=== PATIENT | female | born 1940 | race African-American/Black ===

== ENCOUNTER 2016-10-30 20:48 | Inpatient (IN) ==
[2016-10-30] MEDS ORDERED: SODIUM CHLORIDE 0.9% 500 ML IV STA (21:14)
[2016-10-30] MEDS ORDERED: PANTOPRAZOLE 40 MG VIAL IV STA (21:14)
[2016-10-30] MEDS ORDERED: ONDANSETRON 4 MG/2 ML VIAL IV STA (21:14)
[2016-10-30] MEDS ORDERED: ALUM/MAG/SIMETH/LIDO VISC 1:1 30 ML BOTTLE PO STA (21:14)
--- NOTE | 2016-10-30 21:20 | Emergency Department Note ---
IYeyo Sierra, am scribing for, and in the presence of, Davide Velasco MD 21:19. Rod Smith Charles R, MD, personally performed the services described in this documentation, ascribed by Lula Orona in my presence, and it is both accurate and complete . Arrival - Arrival Chief Complaint: Abdominal / Flank Pain Stated Complaint: stomach pains,unable to stand for long periods ED Nursing Triage Note: C/O Generalized abd pain and not wanting to stand due to the pain. Onset approx one week ago. Last BM today, normal. Family member also reports that pt has had a runny nose and cough, but denies fever. Pt is awake, alert and at her baseline mental status per family at time of triage. Mode of Arrival: Wheelchair Limitations: No Limitations Source: Patient, Family Time Seen by Provider: 10/30/16 21:07 - History of Present Illness HPI Narrative: Pt is a 76 y/o female that came to the ED with c/o abdominal pain and cold the last few days. Pt denies any abdominal pain or tenderness during the exam. Family member with pt reports pt has complained of abdominal pain and has not been able to walk due to having a cold and not eating. Family states pt is drinking liquids though. Family reports pt has had associated sxs of a little vomiting, cough, and runny nose but denies fever. Family states pt has a PMHx of a stroke affecting her left side, DM, and HTN. Family reports pt has been acting different but her speech is not slurred more than normal, pt knows who she is, and pt is able to answer questions. Onset (ago): day(s) Consistency: constant Severity: mild Severity scale (1-10): 1 Quality: other Date of Last Menstrual Period: Hysterectomy Allergies/Adverse Reactions: Allergies Allergy/AdvReac Type Severity Reaction Status Date / Time No Known Allergies Allergy Verified 04/23/15 11:54 Home Medications: Home Medications Medication Instructions Recorded Confirmed Type Aspirin [Ecotrin] 81 mg PO DAILY 04/23/15 10/30/16 History amLODIPine [Norvasc] 10 mg PO DAILY 04/23/15 10/30/16 History metFORMIN [Glucophage] 500 mg PO DAILY 04/23/15 10/30/16 History Review of System - Review of System 12 point system: reviewed and no additional remarkable complaints except as stated - Review of System Constitutional: Present: other (decreased appetite). Absent: fever Head/Ears/Nose/Throat: Present: nasal drainage Respiratory: Present: cough Cardiovascular: Absent: chest pain Gastrointestinal: Present: vomiting. Absent: abdominal pain (no abdominal pain according to pt but family reports pt has been complaining of abdominal pain) Skin: Absent: rash Psychiatric: Absent: anxiety Medical,Surgical,& Family Hx - Medical History Cardio: History of: Hypertension Psychological: History of: Depression Neurology: History of: Cerebrovascular Accident (1997), Dementia Endocrine: History of: Diabetes Mellitus (NIDDM), Dyslipidemia Renal: History of: Renal Problems (incontinent) Musculoskeletal: History of: Musculoskeletal Problems (old right foot break unable to set as child) Hematology: History of: Anemia - Surgical History Thoracic Surgeries: Patient denies;: Organ Transplant Reproductive Surgeries: Surgical HX of;: Hysterectomy - Family History Family History: Reports;: Family Hypertension, Family Psychiatric Problems ( mother-MR) Denies;: Family Anesthesia Reaction, Family Cancer, Family Diabetes, Family Heart Disease, Family Stroke - Social History Smoking Status: Former smoker Frequency of Alcohol Use: None Type of Drug Use: None Exam Vital Signs: Vital Signs Temperature 98.6 F 10/30/16 20:55 Pulse Rate 70 10/30/16 20:55 Respiratory Rate 16 10/30/16 20:55 Blood Pressure 89/44 10/30/16 20:55 O2 Sat by Pulse Oximetry 91 L 10/30/16 20:55 - General General appearance: alert, in no apparent distress, other (pt has baseline slurred speech and drooling) - Head Head exam: Present: atraumatic, normocephalic - Eye Eye exam: Present: PERRL, EOMI - ENT ENT exam: Present: mucous membranes moist. Absent: mucous membranes dry - Neck Neck exam: Present: full ROM. Absent: tenderness - Chest Chest inspection: Present: symmetric chest wall rise. Absent: tenderness - Respiratory Respiratory exam: Present: normal lung sounds bilaterally. Absent: respiratory distress - Cardiovascular Cardiovascular exam: Present: regular rate, normal rhythm, murmur (3 out of 6 systolic murmur) - Abdominal Exam Abdominal exam: Present: soft, normal bowel sounds. Absent: tenderness - Extremities Exam Extremities exam: Present: full ROM, pedal edema (+1 edema to left leg). Absent : tenderness - Back Exam Back exam: Present: full ROM. Absent: tenderness - Neurological Exam Neurological exam: Present: alert, oriented X3, CN II-XII intact. Absent: motor sensory deficit - Psychiatric Psychiatric exam: Present: normal affect, normal mood - Skin Skin exam: Present: warm, dry Course Course Narrative: Patient refused to let us do a rectal exam. Patient does not have any complaints. Cannot explain the anemia elicits a cancerous mass in the right upper lung field - Consultations Consultation #1: Hospitalist will admit patient Time: 23:02 Results - Labs CBC & BMP: 10/30/16 21:30 10/30/16 21:30 Lab Results: I have reviewed the patients labs Labs: Laboratory Tests 10/30/16 21:30 Hgb 7.6 L Hct 26.0 L MCV 63.9 L MCH 19 L MCHC 29.2 L RDW 22.4 H Plt Count 482 H Neut % (Auto) 81.5 H Lymph % (Auto) 10.9 L Neut # (Auto) 9.8 H Lymph # (Auto) 1.3 L Laboratory Tests 10/30/16 21:30 Anion Gap 16.8 H BUN 32 H Creatinine 1.20 H BUN/Creatinine Ratio 26.00 H Glucose 213 H ALT 9 L Troponin I 0.652 H Albumin 2.1 L Globulin 5.2 H Albumin/Globulin Ratio 0.4 L - Diagnostic Findings Procedure: Abdominal x-ray: report reviewed by me (Pulmonary pathology, as described on the chest x-ray. Possible hepatomegaly. Constipation. ), Chest x- ray: report reviewed by me (Complete opacification of the right upper lobe. Possible masses in the right hilar region. CT the chest is recommended for further evaluation. ) Disposition Clinical Impression: Mass of upper lobe of right lung, Anemia, Elevated troponin, Dementia, Constipation, Generalized weakness Case discussed with: patient, patient's family Disposition: Still a Patient Condition: Stable Time of Disposition: 23:03
[2016-10-30] MEDS ORDERED: ALUM/MAG/SIMETH/LIDO VISC 1:1 30 ML BOTTLE PO ONE (21:22)
[2016-10-30] MEDS ORDERED: ONDANSETRON 4 MG/2 ML VIAL ONE ×2 (21:22→21:57)
[2016-10-30] MEDS ORDERED: PANTOPRAZOLE 40 MG VIAL IV ONE (21:22)
--- NOTE | 2016-10-30 21:32 | EKG Report ---
Stationary ECG Study [facility] ER Test Date: 10/30/2016 9:30:19 PM Pat Name: ANSHU DREW Department: Room: Gender: F Furniture Assembler: NOEMI : 1940 Requested by: Davide Hernandez Order Number: [id number] Reading MD: ARGELIA SANCHEZ Intervals [place] Rate: 65 P: 75 GA: 167 QRS: -54 QRSD: 108 T: 78 QT: 341 QTc: 352 Interpretive Statements SINUS RHYTHM WITH OCCASIONAL VENTRICULAR PREMATURE COMPLEXES PATTERN CONSISTENT WITH PULMONARY DISEASE LEFT ANTERIOR FASCICULAR BLOCK Electronically Signed On 10-31-16 12:24:21 CDT by ARGELIA SANCHEZ [email or web address]
[2016-10-30 21:47] LABS: Basophils % 0.1 % (0.0-0.8); Eosinophils % 0.3 % (0.00-10.9); Hemoglobin 7.6 GM/DL (12.0-16.0); Immature Granulocytes % 0.7 %; Immature Granulocytes Absolute 0.09 #; Lymphocytes # 1.3 10*3/uL (1.4-4.0); Lymphocytes % 10.9 % (21.3-54.2); Mean Corpuscular HGB Conc 29.2 GM/DL (32-36); Mean Corpuscular Hemoglobin 19 PG (27-34); Mean Corpuscular Volume 63.9 FL (87-102); Mean Platelet Volume 9.6 FL (9.6-12.0); Monocytes # 0.8 10*3/uL (0.11-0.8); Monocytes % 6.5 % (1.7-12.7); Neutrophils # 9.8 10*3/uL (1.4-7.4); Neutrophils % 81.5 % (38.7-73.9); Platelet Count 482 T/CUMM (130-400); Red Blood Count 4.07 MC/CUMM (3.8-5.5); Red Cell Distribution Width 22.4 % (9.3-17.3)
[2016-10-30] MEDS ORDERED: MORPHINE 2 MG/1 ML SYRINGE ONE (21:57)
--- NOTE | 2016-10-30 22:07 | XRay Report ---
Portable chest. Indication: Generalized abdominal pain. Comparison: April 23, 2014. The heart is normal in size. There is complete opacification of the right upper lobe, without definite volume loss. In the right hilar region, nodular areas are noted, in the 1 to 1.5 cm range. Interstitial markings are prominent but stable. Surgical clips over the right breast. The osseous structures are diffusely demineralized. Degenerative changes of the spinal column and shoulders. Impression: Complete opacification of the right upper lobe. Possible masses in the right hilar region. CT the chest is recommended for further evaluation. PROCEDURE INTERPRETED AT [facility] DEPARTMENT OF RADIOLOGY Final Report Signed by: Dr. Pamela Schwartz
--- NOTE | 2016-10-30 22:11 | XRay Report ---
Two-view abdomen. Indication: Generalized abdominal pain. Comparison: September 21, 2011. The heart is normal in size. There is opacification of the right upper lobe. Surgical clips in the right breast. No free air. Possible liver enlargement. Considerable fecal material throughout the length of the colon. Extensive vascular calcifications. Diffuse demineralization of the osseous structures. Degenerative changes of the spinal column and hips. Impression: Pulmonary pathology, as described on the chest x-ray. Possible hepatomegaly. Constipation. PROCEDURE INTERPRETED AT [facility] [place] DEPARTMENT OF RADIOLOGY Final Report Signed by: Dr. Pamela Schwartz
[2016-10-30 22:24] LABS: Alanine Aminotransferase 9 U/L (13-56); Albumin 2.1 G/DL (3.4-5.0); Alkaline Phosphatase 94 U/L (45-117); Amylase 69 U/L (25-115); Aspartate Amino Transferase 23 U/L (0-37); Bilirubin,Total < 0.39 MG/DL (0.2-1.0); Blood Urea Nitrogen 32 MG/DL (7-18); Calcium 10.1 MG/DL (8.5-10.1); Glucose 213 MG/DL (74-106); Magnesium 2.1 MG/DL (1.8-2.4); Osmolality,Calculated 300.7 MOS/KG (273-304); Potassium 3.8 MMOL/L (3.5-5.1); Sodium 145 MMOL/L (136-145); Total Protein 7.3 G/DL (6.4-8.3)
[2016-10-30 22:31] LABS: Troponin I Only 0.652 NG/ML (0.00-0.045)
--- NOTE | 2016-10-31 00:39 | Hospitalist History & Physical ---
Assessment and Plan (1) Dementia Status: Chronic Current Visit: Yes Qualifiers: Dementia type: unspecified type (2) Mass of upper lobe of right lung Status: Acute Current Visit: Yes (3) Anemia Status: Acute Current Visit: Yes (4) Elevated troponin Status: Acute Current Visit: Yes (5) Constipation Status: Acute Current Visit: Yes (6) Generalized weakness Status: Acute Assessment and plan: Our plan for this patient will be admission to a monitored bed. She has 3 major problems that we need to address #1 is the lung mass. Need to get a CT scan in the morning of a chest with contrast to further characterize this. We will also need to consult pulmonary for their evaluation. Next is anemia. Most likely this is blood loss through her colon. She will not let us do a Hemoccult therefore I will just draw serial H&H's and see were the trend goes. Also there is a mild increase in troponin and this possibility that the abdominal pain that she was experiencing earlier is actually chest pain or referred pain. Will repeat troponins in 8 hours. Discussed plan of care with patient's daughter. Current Visit: Yes History of Present Illness Chief complaint: Abdominal pain History of present illness: Ms. Odell is a 76 year old female past medical history significant for stroke hypertension diabetes and anemia who is in her normal state of health until last few days. Patient came to the ER complaining of abdominal pain.. When she was examined by the ER physician she claims that she was not having any pain.. According to the family member she has not been able to walk because she is not eating and she has been having cold symptoms. Patient was found to be anemic. She she refused to have a Hemoccult done while in our emergency room. Patient's been very contrary and she is mean by nature. She does not want to be here. I was consulted to admit her Home Medications Medication Instructions Recorded Confirmed Type Aspirin [Ecotrin] 81 mg PO DAILY 04/23/15 10/30/16 History amLODIPine [Norvasc] 10 mg PO DAILY 04/23/15 10/30/16 History metFORMIN [Glucophage] 500 mg PO DAILY 04/23/15 10/30/16 History Allergies Allergy/AdvReac Type Severity Reaction Status Date / Time No Known Allergies Allergy Verified 04/23/15 11:54 Medical,Surgical,& Family Hx - Medical History Cardio: History of: Hypertension Psychological: History of: Depression Neurology: History of: Cerebrovascular Accident (1997), Dementia Endocrine: History of: Diabetes Mellitus (NIDDM), Dyslipidemia Renal: History of: Renal Problems (incontinent) Musculoskeletal: History of: Musculoskeletal Problems (old right foot break unable to set as child) Hematology: History of: Anemia - Surgical History Thoracic Surgeries: Patient denies;: Organ Transplant Reproductive Surgeries: Surgical HX of;: Hysterectomy - Family History Family History: Reports;: Family Hypertension, Family Psychiatric Problems ( mother-MR) Denies;: Family Anesthesia Reaction, Family Cancer, Family Diabetes, Family Heart Disease, Family Stroke - Social History Smoking Status: Former smoker Frequency of Alcohol Use: None Type of Drug Use: None 12 point system: reviewed and no additional remarkable complaints except as stated Exam - Constitutional Vitals: Period Temp Pulse Resp BP Sys/Wilson Pulse Ox Last 24 Hr 98.6 F-98.6 F 66-70 16-16 89-89/44-44 91 - General General appearance: alert, in no apparent distress - Head Head exam: Present: atraumatic, normocephalic - Eye Eye exam: Present: PERRL, EOMI - ENT ENT exam: Present: mucous membranes moist. - Neck Neck exam: Present: full ROM. Absent: tenderness - Chest Chest inspection: Present: symmetric chest wall rise. Absent: tenderness - Respiratory Respiratory exam: Present: normal lung sounds bilaterally. Absent: respiratory distress - Cardiovascular Cardiovascular exam: Present: regular rate, normal rhythm, systolic ejection murmur - Abdominal Exam Abdominal exam: Present: soft, normal bowel sounds. - Extremities Exam Extremities exam: Present: full ROM, pedal edema (+1 edema to left leg). - Back Exam Back exam: Present: full ROM. - Neurological Exam Neurological exam: Present: alert, oriented X3, CN II-XII intact. - Psychiatric Psychiatric exam: Present: normal affect, normal mood - Skin Skin exam: Present: warm, dry Results - Labs CBC & BMP: 10/30/16 21:30 10/30/16 21:30
[2016-10-31] MEDS ORDERED: ONDANSETRON 4 MG/2 ML VIAL IV PRN (00:46)
[2016-10-31] MEDS ORDERED: DEXTROSE 50% 25 GM/50 ML VIAL IV PRN (00:55)
[2016-10-31] MEDS ORDERED: GLUCAGON 1 MG VIAL IM PRN (00:55)
[2016-10-31 07:25] LABS: Basophils % 0.1 % (0.0-0.8); Eosinophils # 0.1 10*3/uL (0.0-0.87); Eosinophils % 0.5 % (0.00-10.9); Hematocrit 20.7 VOL% (35.7-47.0); Immature Granulocytes % 0.7 %; Lymphocytes # 1.2 10*3/uL (1.4-4.0); Lymphocytes % 8.5 % (21.3-54.2); Mean Corpuscular Hemoglobin 19 PG (27-34); Mean Corpuscular Volume 62.5 FL (87-102); Mean Platelet Volume 9.9 FL (9.6-12.0); Monocytes # 0.7 10*3/uL (0.11-0.8); Monocytes % 4.9 % (1.7-12.7); Neutrophils # 11.9 10*3/uL (1.4-7.4); Neutrophils % 85.3 % (38.7-73.9); Platelet Count 446 T/CUMM (130-400); Red Blood Count 3.31 MC/CUMM (3.8-5.5); Red Cell Distribution Width 22.1 % (9.3-17.3)
[2016-10-31 07:29] LABS: Hemoglobin 6.2 GM/DL (12.0-16.0)
--- NOTE | 2016-10-31 07:46 | CT Report ---
CT chest w con Indication: Mass. CT CHEST WITH CONTRAST DLP: 155 mGy*cm Comparison: None Technique: Axial CT images of the chest were obtained after the IV administration of Omnipaque 350, 100 cc. Findings: Peripherally enhancing centrally low dense mass involving the majority of the right upper lobe is present with multiple satellite nodules both in the right upper lobe and right lower lobe. Right middle lobe contains a small 7 mm nodule that is suspicious for metastatic lesion. Left lung appears relatively clear. There is mediastinal invasion from the primary right upper lobe lesion, including at least one 18 mm lymph node in the pretracheal space. Heart is normal in size. Extensive calcified atheromatous disease is present. No aortic dissection or aneurysm is shown. No left hilar lymphadenopathy. No axillary lymphadenopathy. Pleural spaces are clear. Bone windows demonstrate bony destruction of the right second, third and fourth ribs associated with the primary tumor. No additional destructive bone lesions are shown. In the upper abdomen, a right adrenal gland mass is present measuring 17 x 16 mm, and a left adrenal gland mass is present measuring 22 x 15 mm. A few hypodensities are present on the kidneys, likely cysts, largest on the left measuring 10 mm diameter. Impression: 1. Right upper lobe mass with multiple satellite nodules elsewhere in the right upper lobe and right lower lobe. Invasion of the right upper mediastinum. Mediastinal lymphadenopathy. Invasion of the right lateral chest wall with bony destruction of the right second, third and fourth ribs. No contralateral pulmonary disease identified. 2. Bilateral adrenal masses, likely metastatic. 3. Calcified atheromatous disease. 4. Probable renal cysts. PROCEDURE INTERPRETED AT [facility] [place] DEPARTMENT OF RADIOLOGY Final Report Signed by: Richar Lawson M.D.
[2016-10-31 07:54] LABS: Hypochromasia 1+; Ovalocytes Slight; Platelet Estimate Adequate; Target Cells Few
[2016-10-31 07:56] LABS: Calcium 9.2 MG/DL (8.5-10.1); Osmolality,Calculated 297.6 MOS/KG (273-304); Potassium 3.4 MMOL/L (3.5-5.1)
[2016-10-31] MEDS: INSULIN REGULAR 100 UNIT/ML SUBCUT SCH ×4 (08:59→20:45)
[2016-10-31] MEDS: PANTOPRAZOLE 40 MG TABLET PO SCH (09:00)
--- NOTE | 2016-10-31 10:23 | Gastrointestinal Consult Note ---
<DebraJuliet Jameson - Last Filed: 10/31/16 10:17> Assessment and Plan (1) Anemia Status: Acute Assessment and plan: 10/31-reports of abdominal pain by family on admission, patient denies any history of pain. Has history of dementia with CVA in past. Found on admission to be anemic. Refused stool for occult blood sample. To be transfused 2 units of packed red blood cells today. No known history of prior endoscopy. Continue to monitor H&H. Plan an addendum to follow by Dr. Beltran. Current Visit: Yes History of Present Illness Chief complaint: Abdominal pain History of present illness: Ms. Odell is a 76 year old female who presented to the ER with complaints of abdominal pain and cold symptoms. Patient is a poor historian and contributes very minimally to the patient interview. Information is obtained from chart review. No family is present during visit. Patient has a prior history of CVA as well as dementia. Patient is reported to have been brought to the ER by family due to patient complaining of abdominal pain and inability to walk as well as cold symptoms including nausea, vomiting, cough and runny nose. Patient is not reported to have been febrile at home. Patient has a history of a CVA with left hemiparesis, diabetes, and hypertension. Patient will awaken and answer questions but with simple yes or no replies and falls back asleep during visit. Patient denies any abdominal pain during visit. States she has not had abdominal pain. On admission she was found to be anemic and refused to have a Hemoccult done. Family reports that she can be difficult when it comes to cooperation at times. She has noted on admission to have a hemoglobin of 7.6 which is down at 6.2 today in the absence of any overt bleeding. She is to receive 2 units of blood this morning. BUN/creatinine ratio is elevated at 32. On admission abdominal x-ray showed hepatomegaly and constipation without any other acute process is seen she also had a chest CT done which showed a right upper lung mass with satellite nodules and invasion of the mediastinum. No findings of prior endoscopy at our facility noted. Patient noted on med list to take Ecotrin daily. Home Medications Medication Instructions Recorded Confirmed Type Aspirin [Ecotrin] 81 mg PO DAILY 04/23/15 10/30/16 History amLODIPine [Norvasc] 10 mg PO DAILY 04/23/15 10/30/16 History metFORMIN [Glucophage] 500 mg PO DAILY 04/23/15 10/30/16 History Allergies Allergy/AdvReac Type Severity Reaction Status Date / Time No Known Allergies Allergy Verified 04/23/15 11:54 Medical,Surgical,& Family Hx - Medical History Cardio: History of: Hypertension Psychological: History of: Depression Neurology: History of: Cerebrovascular Accident (1997), Dementia Endocrine: History of: Diabetes Mellitus (NIDDM), Dyslipidemia Renal: History of: Renal Problems (incontinent) Musculoskeletal: History of: Musculoskeletal Problems (old right foot break unable to set as child) Hematology: History of: Anemia - Surgical History Thoracic Surgeries: Patient denies;: Organ Transplant Reproductive Surgeries: Surgical HX of;: Hysterectomy - Family History Family History: Reports;: Family Hypertension, Family Psychiatric Problems ( mother-MR) Denies;: Family Anesthesia Reaction, Family Cancer, Family Diabetes, Family Heart Disease, Family Stroke - Social History Smoking Status: Former smoker Frequency of Alcohol Use: None Type of Drug Use: None ROS unobtainable: due to mental status Exam - Constitutional Vitals: Period Temp Pulse Resp BP Sys/Wilson Pulse Ox Last 24 Hr 97.1 F 61-65 16-16 106-117/54-55 96-97 General appearance: normal weight, no acute distress - Head Head exam: Present: normal inspection, normocephalic - Eye Eye exam: Present: other (Lids and conjunctivae unremarkable). Absent: scleral icterus - ENT ENT exam: Present: normal exam, normal oropharynx - Neck Neck exam: Present: normal inspection - Respiratory Respiratory exam: Present: clear to auscultation bilaterally. Absent: rales, rhonchi, wheezes - Cardiovascular Cardiovascular exam: Present: regular rate and rhythm. Absent: diastolic murmur , JVD, systolic murmur - GI/Abdominal GI/Abdominal exam: Present: normal bowel sounds, soft. Absent: ascites, distended, mass, organomegaly, tenderness - Extremities Exam Extremities exam: Present: normal inspection, full ROM - Back Exam Back exam: Present: normal inspection - Neurological Exam Neurological exam: Present: alert, altered - Psychiatric Psychiatric exam: Present: flat affect - Skin Skin exam: Present: normal color, warm, dry Results - Labs CBC & BMP: 10/31/16 07:06 10/31/16 07:06 Lab Results: I have reviewed the past 24 hour labs - Diagnostic Findings Procedure: Abdominal x-ray: report reviewed by me, CT - chest: report reviewed by me Quality Measures - VTE Contraindication to Pharmacological VTE Prophylaxis: Active Bleeding <Pj Beltran - Last Filed: 10/31/16 18:04> History of Present Illness History of present illness: Ms. Odell is a 76 year old female Exam - Constitutional Vitals: Period Temp Pulse Resp BP Sys/Wilson Pulse Ox Last 24 Hr 97.1 F-98.5 F 61-83 16-18 99-145/47-75 95-100 Results - Labs CBC & BMP: 10/31/16 11:25 10/31/16 07:06
[2016-10-31] MEDS ORDERED: BISACODYL 5 MG TABLET PO ONE (12:00)
[2016-10-31] MEDS: FUROSEMIDE 20 MG/2 ML VIAL IV SCH ×2 (15:12→20:45)
[2016-10-31] MEDS ORDERED: POTASSIUM CHLORIDE RIDER 10 MEQ in PREMIX 1 EACH IV PRN (15:28)
--- NOTE | 2016-10-31 16:40 | Oncology Consult Note ---
Assessment and Plan (1) Mass of upper lobe of right lung Status: Acute Current Visit: Yes (2) Dementia Status: Chronic Current Visit: Yes Qualifiers: Dementia type: unspecified type (3) Anemia Status: Acute Current Visit: Yes History of Present Illness History of present illness: Ms. Odell is a 76 year old female with advanced dementia who was admitted with weakness and was found to have a large right upper lobe mass with bony invasion and lymph node involvement in the mediastinum. She also is severely anemic. It is very difficult to obtain a history from her due to her dementia. There is no family present on my exam. She has not yet had a biopsy of this right upper lobe mass but this is most certainly a malignant process. She appears to have a very low functional status and it sounds like she lives at home with her daughter. GI is evaluating her severe anemia. I am unsure if we have any type of Hemoccult testing done yet since she has refused testing thus far. I would assume that she is iron deficient given her severe microcytic anemia. Her case appears futile given the advanced nature of this tumor and her poor mental and functional status. These issues need to be addressed with her daughter to see if they would like to pursue any further evaluation. At this point it appears that her best option is supportive care only with hospice. She would not be a candidate for any type of therapy including palliative radiation or chemotherapy. I will hold off on ordering a bone scan for now as this is of no benefit if the family is going to agree to not do any type of treatment. I tried to call both daughters listed on her contact page today with no success. I have notified the nurses to try to obtain a phone number from whatever family shows up to visit Ms. Odell. Home Medications Medication Instructions Recorded Confirmed Type Aspirin [Ecotrin] 81 mg PO DAILY 04/23/15 10/30/16 History amLODIPine [Norvasc] 10 mg PO DAILY 04/23/15 10/30/16 History metFORMIN [Glucophage] 500 mg PO DAILY 04/23/15 10/30/16 History Allergies Allergy/AdvReac Type Severity Reaction Status Date / Time No Known Allergies Allergy Verified 04/23/15 11:54 Medical,Surgical,& Family Hx - Medical History Cardio: History of: Hypertension Psychological: History of: Depression Neurology: History of: Cerebrovascular Accident (1997), Dementia Endocrine: History of: Diabetes Mellitus (NIDDM), Dyslipidemia Renal: History of: Renal Problems (incontinent) Musculoskeletal: History of: Musculoskeletal Problems (old right foot break unable to set as child) Hematology: History of: Anemia - Surgical History Thoracic Surgeries: Patient denies;: Organ Transplant Reproductive Surgeries: Surgical HX of;: Hysterectomy - Family History Family History: Reports;: Family Hypertension, Family Psychiatric Problems ( mother-MR) Denies;: Family Anesthesia Reaction, Family Cancer, Family Diabetes, Family Heart Disease, Family Stroke - Social History Smoking Status: Former smoker Frequency of Alcohol Use: None Type of Drug Use: None ROS unobtainable: due to mental status Exam - Constitutional Vitals: Period Temp Pulse Resp BP Sys/Wilson Pulse Ox Last 24 Hr 97.1 F-98.5 F 61-83 16-18 99-145/47-75 95-100 General appearance: no acute distress, cachectic - Head Head Exam: Present: normocephalic, atraumatic - Eye Eye Exam: Present: EOMI Pupils: Present: PERRL - ENT ENT exam: Present: normal exam, normal oropharynx - Neck Neck exam: Absent: lymphadenopathy, thyromegaly - Respiratory Respiratory exam: Present: CTAB. Absent: wheezes - Cardiovascular Cardiovascular exam: Present: RRR. Absent: JVD - GI/Abdominal GI/Abdominal exam: Present: soft. Absent: ascites, distended, mass - Neurological Exam Neurological exam: Present: altered - Psychiatric Psychiatric exam: Present: agitated - Skin Skin exam: Present: warm, dry Results - Labs CBC & BMP: 10/31/16 11:25 10/31/16 07:06 Lab Results: I have reviewed the past 24 hour labs - Diagnostic Findings Procedure: CT - chest: image reviewed by me, report reviewed by me Quality Measures - VTE Contraindication to Pharmacological VTE Prophylaxis: Active Bleeding
--- NOTE | 2016-10-31 16:43 | Hospitalist Progress Note ---
Assessment and Plan (1) Acute blood loss anemia Status: Acute Assessment and plan: Colonoscopy in a.m. 2 units packed red blood cells. Monitor hemoglobin. Continue Protonix. Nursing got nervous after patient got blood she was concerned about volume overload so 1 dose of Lasix was given after each unit packed red blood cells. Current Visit: Yes (2) Acute renal failure Status: Acute Assessment and plan: Acute renal failure resolved with hydration. Current Visit: Yes (3) Generalized weakness Status: Acute Assessment and plan: Probably due to blood loss and cancer. Patient has advanced dementia Current Visit: Yes (4) Mass of upper lobe of right lung Status: Acute Assessment and plan: Biopsy tomorrow. Dr. Banegas has seen her and will hopefully recommend hospice. Current Visit: Yes (5) Dementia Status: Chronic Assessment and plan: Currently not on any dementia drug Current Visit: Yes Qualifiers: Dementia type: unspecified type (6) Diabetes Status: Acute Assessment and plan: Hold metformin continue insulin sliding scale Current Visit: Yes (7) Hypercalcemia Status: Acute Assessment and plan: Improved with hydration Current Visit: Yes Hospitalist: Subjective Interval history: Patient has a long history of smoking. She is demented and does live with her daughter. Daughter and I had a conversation that she most likely has lung cancer with metastases. I asked her to contact her siblings and discuss you know how they wanted to proceed with that. We were going to attempt to get a biopsy today but IRR is too busy they will attempted tomorrow. She also has a bleed somewhere her hemoglobin was 6 and we given her 2 units packed cells and GI is going to do C scope tomorrow. Patient developed more crackles after receiving the blood work and give Lasix between each unit. Total time spent [address] Banegas this morning Exam - Constitutional Vitals: Period Temp Pulse Resp BP Sys/Wilson Pulse Ox Last 24 Hr 97.1 F-98.5 F 61-83 16-18 99-145/47-75 95-100 Exam: Heart Rate-[RRR] Lungs-[rhonchi on right] GI-[+bs soft, NT] Ext-[no edema] Neuro [Motor 5/5], [alert and oriented times 1, advanced dementia] psych [normal mood and affect] General [no acute distress] Results - Labs CBC & BMP: 10/31/16 11:25 10/31/16 07:06 Lab Results: I have reviewed the past 24 hour labs - Diagnostic Findings Procedure: CT - chest: report reviewed by me (Right upper lobe mass with metastases to the adrenal glands bones mediastinum and lymph nodes, RLL lobe mass ) Quality Measures - VTE Contraindication to Pharmacological VTE Prophylaxis: Active Bleeding
[2016-10-31] MEDS ORDERED: POTASSIUM CHLORIDE 20 MEQ TABLET PO ONE (16:45)
[2016-10-31] MEDS ORDERED: POLYETHYLENE GLYCOL POWDER 255 GM BOTTLE PO ONE (18:00)
[2016-10-31 19:43] LABS: Apearance,Urine Slightly Hazy (Clear); Bacteria,Urine Occasional /HPF (Few); Bilirubin,Urine Negative (Negative); Blood, Urine Moderate mg/dL (Negative); Glucose,Urine (UA) Negative (Negative); Ketones,Urine Negative (Negative); Mucus,Urine Occasional /LPF (Occasional); Nitrite,Urine Negative (Negative); Protein,Urine Negative; RBC,Urine 44 /HPF (0-4); Urine Color Straw (Yellow); Urine Specific Gravity 1.009 (1.001-1.035); Urine Urobilinogen < 2.0 EU/DL (0.2-1.0); WBC,Urine 9 /HPF (0-6)
[2016-10-31] MEDS: DESITIN 4OZ/NYSTATIN 15 GRAM MIXTURE PASTE TOP SCH (20:46)
[2016-10-31] MEDS ORDERED: MAGNESIUM CITRATE 300 ML BOTTLE PO ONE (21:00)
[2016-10-31 21:59] LABS: Hematocrit 32.2 VOL% (35.7-47.0); Hemoglobin 10.1 GM/DL (12.0-16.0)
[2016-10-31 22:12] LABS: INR 1.1; PT Patient Result 11.2 SECS; Partial Thromboplastin Time 33.4 SECS (0-40)
[2016-11-01] MEDS: INSULIN REGULAR 100 UNIT/ML SUBCUT SCH ×4 (07:37→20:30)
[2016-11-01 07:46] LABS: Basophils % 0.1 % (0.0-0.8); Eosinophils # 0.1 10*3/uL (0.0-0.87); Eosinophils % 0.4 % (0.00-10.9); Hematocrit 32.2 VOL% (35.7-47.0); Hemoglobin 10.4 GM/DL (12.0-16.0); Immature Granulocytes % 0.6 %; Immature Granulocytes Absolute 0.08 #; Lymphocytes % 7.3 % (21.3-54.2); Mean Corpuscular HGB Conc 32.3 GM/DL (32-36); Mean Corpuscular Hemoglobin 22 PG (27-34); Mean Corpuscular Volume 67.6 FL (87-102); Mean Platelet Volume 9.6 FL (9.6-12.0); Monocytes # 0.8 10*3/uL (0.11-0.8); Monocytes % 5.7 % (1.7-12.7); Neutrophils % 85.9 % (38.7-73.9); Platelet Count 460 T/CUMM (130-400); Red Blood Count 4.76 MC/CUMM (3.8-5.5); Red Cell Distribution Width 25.5 % (9.3-17.3)
[2016-11-01] MEDS: PANTOPRAZOLE 40 MG TABLET PO SCH (08:04)
[2016-11-01] MEDS: DESITIN 4OZ/NYSTATIN 15 GRAM MIXTURE PASTE TOP SCH ×2 (08:05→20:38)
[2016-11-01] MEDS: FUROSEMIDE 20 MG/2 ML VIAL IV SCH (08:05)
[2016-11-01 08:10] LABS: Hypochromasia 1+; Platelet Estimate Adequate; Target Cells Few
[2016-11-01 08:22] LABS: Calcium 9.7 MG/DL (8.5-10.1); Osmolality,Calculated 282.5 MOS/KG (273-304); Potassium 2.9 MMOL/L (3.5-5.1)
--- NOTE | 2016-11-01 08:24 | Event Note ---
Talked with family/patient last night and discussed the biopsy. After our discussion and in light of the fact that there will be no plans for treatment - no matter what the biopsy shows - the family has requested to cancel the biopsy and will likely plan for hospice care.
[2016-11-01] MEDS: POTASSIUM CHLORIDE RIDER 10 MEQ in PREMIX 1 EACH IV PRN ×5 (08:56→20:33)
[2016-11-01] MEDS: POTASSIUM CHLORIDE 20 MEQ TABLET PO SCH ×3 (10:40→20:37)
--- NOTE | 2016-11-01 11:49 | Gastrointestinal Progress Note ---
<Juliet Richardson Jameson - Last Filed: 11/01/16 11:47> Assessment and Plan (1) Anemia Status: Acute Assessment and plan: 11/01-Hgb stable at 10.4 w/o overt bleeding. EGD postponed to tomorrow due to hypokalemia. Plan and addendum to follow by DR Beltran. 10/31-reports of abdominal pain by family on admission, patient denies any history of pain. Has history of dementia with CVA in past. Found on admission to be anemic. Refused stool for occult blood sample. To be transfused 2 units of packed red blood cells today. No known history of prior endoscopy. Continue to monitor H&H. Plan an addendum to follow by Dr. Beltran. Current Visit: Yes Gastroenterology - PN: Subj Interval history: CC: Abd pain Pt is seen, awake and alert. States she is having some abdominal pain this morning. SHe was scheduled for colonoscopy however pt refused the prep yesterday. This was changed to an EGD for today however pt had potassium at 2.9 with IV potassium repletion protocol however labwork was not returned soon enough to initiate this. Pt has received potassium riders however will recheck this in the morning and proceed with EGD if hypokalemia is improved. Abdomen is soft, nontender. ROS: Denies SOB or chest pain Exam (Progress Note) - Constitutional Vitals: Period Temp Pulse Resp BP Sys/Wilson Pulse Ox Last 24 Hr 97.3 F-98.5 F 63-91 18-20 99-146/47-75 94-100 General appearance: normal weight, no acute distress - Head Head exam: Present: normal inspection, normocephalic - Eye Eye exam: Present: other (lids and conjunctiva unremarkable). Absent: scleral icterus - ENT ENT exam: Present: normal exam, normal oropharynx - Neck Neck exam: Present: normal inspection - Respiratory Respiratory exam: Present: clear to auscultation bilaterally. Absent: rales, rhonchi, wheezes - Cardiovascular Cardiovascular exam: Present: regular rate and rhythm. Absent: diastolic murmur , JVD, systolic murmur - GI/Abdominal GI/Abdominal exam: Present: normal bowel sounds, tenderness, soft. Absent: ascites, distended, mass, organomegaly - Extremities Exam Extremities exam: Present: normal inspection, full ROM - Back Exam Back exam: Present: normal inspection - Neurological Exam Neurological exam: Present: alert, oriented X3 - Psychiatric Psychiatric exam: Present: normal affect, normal mood - Skin Skin exam: Present: normal color, warm, dry Results - Labs CBC & BMP: 11/01/16 07:39 11/01/16 07:39 Lab Results: I have reviewed the past 24 hour labs <Pj Beltran - Last Filed: 11/01/16 18:46> Exam (Progress Note) - Constitutional Vitals: Period Temp Pulse Resp BP Sys/Wilson Pulse Ox Last 24 Hr 97.3 F-98.7 F 66-91 18-20 104-146/56-75 94-100 Results - Labs CBC & BMP: 11/01/16 07:39 11/01/16 14:46
[2016-11-01 15:21] LABS: Magnesium 1.8 MG/DL (1.8-2.4); Potassium 4.1 MMOL/L (3.5-5.1)
[2016-11-01] MEDS ORDERED: cefTRIAXone 1,000 MG in SODIUM CHLORIDE 0.9% 100 ML IV SCH (16:00)
--- NOTE | 2016-11-01 16:11 | Hospitalist Progress Note ---
Assessment and Plan (1) Acute blood loss anemia Status: Acute Assessment and plan: Hemoglobin stable at 10.4 will attempt EGD tomorrow Current Visit: Yes (2) Acute renal failure Status: Acute Assessment and plan: Acute renal failure resolved with hydration. Current Visit: Yes (3) Generalized weakness Status: Acute Assessment and plan: Probably due to blood loss and cancer. Patient has advanced dementia Current Visit: Yes (4) Mass of upper lobe of right lung Status: Acute Assessment and plan: Biopsy cancelled. Dr. Banegas recommended hospice as she is not a candidate for chemo or radiation Current Visit: Yes (5) Dementia Status: Chronic Assessment and plan: already advanced medications would be futile Current Visit: Yes Qualifiers: Dementia type: unspecified type (6) Diabetes Status: Acute Assessment and plan: Hold metformin, BS low at times, continue insulin sliding scale Current Visit: Yes (7) Hypercalcemia Status: Acute Assessment and plan: Improved with hydration, may be elevated due to lung ca Current Visit: Yes (8) Hypokalemia Status: Acute Assessment and plan: Replacing with po potassium Current Visit: Yes (9) UTI (urinary tract infection) Status: Acute Assessment and plan: Patient does have a urinary tract infection. It is growing gram-negative rods. I started her on Rocephin. Last time she grew Klebsiella which was sensitive to Rocephin. Current Visit: No Hospitalist: Subjective Interval history: Patient has very advanced dementia and is very difficult at night. This morning she did not want to take any of her pills. Family has decided to cancel biopsy due to the extensive nature of her cancer. Patient's potassium was too low to get an EGD today. Exam - Constitutional Vitals: Period Temp Pulse Resp BP Sys/Wilson Pulse Ox Last 24 Hr 97.3 F-98.7 F 64-91 18-20 101-146/54-75 94-100 Exam: Heart Rate-[RRR] Lungs-[clear] GI-[+bs soft, NT] Ext-[no edema] Neuro [Motor 5/5], [alert and oriented times 1, advanced dementia] psych [agitated mood and affect], wanted to be left alone. General [no acute distress] Results - Labs CBC & BMP: 11/01/16 07:39 11/01/16 14:46 Lab Results: I have reviewed the past 24 hour labs Labs: urine Culture growing gram-negative rods Quality Measures - VTE Contraindication to Pharmacological VTE Prophylaxis: Active Bleeding
[2016-11-02 01:13] LABS: Basophils % 0.2 % (0.0-0.8); Eosinophils # 0.1 10*3/uL (0.0-0.87); Eosinophils % 0.6 % (0.00-10.9); Hematocrit 31.2 VOL% (35.7-47.0); Hemoglobin 9.6 GM/DL (12.0-16.0); Immature Granulocytes % 0.4 %; Immature Granulocytes Absolute 0.05 #; Lymphocytes # 1.1 10*3/uL (1.4-4.0); Mean Corpuscular HGB Conc 30.8 GM/DL (32-36); Mean Corpuscular Hemoglobin 22 PG (27-34); Mean Corpuscular Volume 69.8 FL (87-102); Mean Platelet Volume 9.8 FL (9.6-12.0); Monocytes % 7.9 % (1.7-12.7); Neutrophils # 10.2 10*3/uL (1.4-7.4); Neutrophils % 81.9 % (38.7-73.9); Platelet Count 424 T/CUMM (130-400); Red Blood Count 4.47 MC/CUMM (3.8-5.5); Red Cell Distribution Width 26.5 % (9.3-17.3); White Blood Count 12.4 T/CUMM (4-12)
[2016-11-02 01:40] LABS: Calcium 9.5 MG/DL (8.5-10.1); Potassium 4.2 MMOL/L (3.5-5.1)
[2016-11-02 04:38] LABS: Platelet Estimate Normal; Target Cells 1+
[2016-11-02] MEDS: INSULIN REGULAR 100 UNIT/ML SUBCUT SCH ×4 (07:37→20:39)
[2016-11-02] MEDS: DESITIN 4OZ/NYSTATIN 15 GRAM MIXTURE PASTE TOP SCH (08:00)
[2016-11-02] MEDS: PANTOPRAZOLE 40 MG TABLET PO SCH (08:00)
[2016-11-02] MEDS: POTASSIUM CHLORIDE 20 MEQ TABLET PO SCH ×2 (08:00→20:41)
[2016-11-02] MEDS ORDERED: LIDOCAINE 2% 5 ML VIAL ONE (10:30)
[2016-11-02] MEDS ORDERED: PROPOFOL 200 MG/20 ML VIAL IV ONE (10:30)
--- NOTE | 2016-11-02 11:36 | History and Physical Update ---
History and Physical Update - Physical Exam Mental Status: alert and oriented Heart: regular rate and rhythm Lung: clear to auscultation Abdomen: within normal limits Vitals: within normal limits
--- NOTE | 2016-11-02 11:38 | Operative Note ---
Date of procedure: 11/02/16 Pre-op diagnosis: Anemia and abdominal pain Procedure: EGD 76-year-old female with complaints of abdominal pain and anemia now for upper endoscopy after the patient has refused prep for colonoscopy. Hospital course has also been complicated by hypokalemia which is now been resolved. Informed consent was obtained patient's family. She was sedated with MAC anesthesia per anesthesia protocol. Placed in the left lateral decubitus position the Olympus flexible video upper endoscope was inserted into the oral cavity under direct vision the esophagus was intubated. Findings: Esophagus-normal proximal esophageal mucosa. In the mid to distal esophagus severe erosive esophagitis is present. There is a moderate hiatal hernia. No clear evidence of Bertrand's esophagus was identified nor were any varices seen. Stomach-normal insufflation normal mucosa to direct and retroflexed views of the body, fundus, cardia and antrum the stomach. Pylorus-normal Duodenum-normal for the bulb and duodenum to the third portion of the duodenum. The procedure terminated placed our procedure well she is discharged recovery in good condition. Postop diagnosis: 1. Gastroesophageal reflux disease with erosive esophagitis-continue PPI treatment twice daily would initiate this now with IV proton pump inhibitors. Antireflux precautions will be challenging for this patient but certainly should be attempted. 2. Patient has refused prep for colonoscopy we can reconsider if she is willing to drink her prep but so far she has not shown a willingness. Anesthesia: [facility] [place] Surgeon / Physician: Pj Beltran Estimated blood loss: none Specimens: none sent Condition: stable Disposition: post procedure unit Results - Labs CBC & BMP: 11/02/16 00:41 11/02/16 00:41 Discharge Plan - Discharge Medications No Action amLODIPine [Norvasc] 10 mg PO DAILY metFORMIN [Glucophage] 500 mg PO DAILY Aspirin [Ecotrin] 81 mg PO DAILY - Follow Up or Referral - Forms/Instructions
[2016-11-02] MEDS: PANTOPRAZOLE 40 MG VIAL IV SCH ×2 (11:44→20:41)
--- NOTE | 2016-11-02 13:16 | Anesthesia ---
Anesthesia Post OP - Post Ansesthetic Evaluation Patient seen in post op: Yes Resp: within normal limits CV: within normal limits Mental: within normal limits Temp: within normal limits [id number]: within normal limits Nausea and Vomiting: within normal limits Pain: within normal limits
--- NOTE | 2016-11-02 15:34 | Hospitalist Progress Note ---
Assessment and Plan (1) Acute blood loss anemia Status: Acute Assessment and plan: Hemoglobin still stable, EGD showed GERD with erosive esophagitis continue PPI twice a day patient too combative to attempt colonoscopy at this point. Current Visit: Yes (2) Acute renal failure Status: Acute Assessment and plan: Acute renal failure resolved. Current Visit: Yes (3) Generalized weakness Status: Acute Assessment and plan: Probably due to blood loss and cancer. Patient has advanced dementia Current Visit: Yes (4) Mass of upper lobe of right lung Status: Acute Assessment and plan: Biopsy cancelled. Dr. Banegas recommended hospice as she is not a candidate for chemo or radiation Current Visit: Yes (5) Dementia Status: Chronic Assessment and plan: already advanced medications would be futile, seroquel 50 mg bedtime Current Visit: Yes Qualifiers: Dementia type: unspecified type (6) Diabetes Status: Acute Assessment and plan: continue insulin sliding scale Current Visit: Yes (7) Hypercalcemia Status: Acute Assessment and plan: Improved with hydration, may be elevated due to lung ca Current Visit: Yes (8) Hypokalemia Status: Acute Assessment and plan: Replaced Current Visit: Yes (9) UTI (urinary tract infection) Status: Acute Assessment and plan: invanz 1 gram IV. Current Visit: No Hospitalist: Subjective Interval history: Nursing reports patient has been extremely agitated and difficult to handle due to her advanced dementia. She did not sleep well last night. She did go for EGD today and we most likely found the source of our bleed. We will send her home on hospice tomorrow. The sooner she gets back in her home environment the better. Exam - Constitutional Vitals: Period Temp Pulse Resp BP Sys/Wilson Pulse Ox Last 24 Hr 97.4 F-98.4 F 68-90 16-20 93-136/45-049 94-100 Exam: Heart Rate-[RRR] Lungs-[diminished on right] GI-[+bs soft, NT] Ext-[no edema] Neuro [Motor 5/5], [agitated advanced dementia] psych [agitated mood and affect], General [no acute distress] Results - Labs CBC & BMP: 11/02/16 00:41 11/02/16 00:41 Lab Results: I have reviewed the past 24 hour labs Labs: Urine culture growing ESBL resistant to Rocephin Quality Measures - VTE Contraindication to Pharmacological VTE Prophylaxis: Active Bleeding
[2016-11-02] MEDS ORDERED: ERTAPENEM 1,000 MG in SODIUM CHLORIDE 0.9% 100 ML IV SCH (16:00)
[2016-11-02] MEDS ORDERED: QUEtiapine 25 MG TABLET PO SCH (21:00)
[2016-11-03] MEDS: DESITIN 4OZ/NYSTATIN 15 GRAM MIXTURE PASTE TOP SCH ×2 (01:10→08:39)
[2016-11-03] MEDS: POTASSIUM CHLORIDE 20 MEQ TABLET PO SCH ×2 (01:11→08:39)
[2016-11-03 07:57] LABS: Basophils % 0.3 % (0.0-0.8); Eosinophils # 0.1 10*3/uL (0.0-0.87); Eosinophils % 0.6 % (0.00-10.9); Hematocrit 32.9 VOL% (35.7-47.0); Immature Granulocytes % 0.9 %; Immature Granulocytes Absolute 0.12 #; Lymphocytes # 1.4 10*3/uL (1.4-4.0); Lymphocytes % 10.9 % (21.3-54.2); Mean Corpuscular HGB Conc 30.4 GM/DL (32-36); Mean Corpuscular Hemoglobin 22 PG (27-34); Mean Corpuscular Volume 71.8 FL (87-102); Mean Platelet Volume 9.9 FL (9.6-12.0); Monocytes # 1.2 10*3/uL (0.11-0.8); Monocytes % 8.9 % (1.7-12.7); Neutrophils # 10.2 10*3/uL (1.4-7.4); Neutrophils % 78.4 % (38.7-73.9); Platelet Count 441 T/CUMM (130-400); Red Blood Count 4.58 MC/CUMM (3.8-5.5)
[2016-11-03] MEDS: INSULIN REGULAR 100 UNIT/ML SUBCUT SCH ×2 (08:33→12:06)
--- NOTE | 2016-11-03 08:51 | Gastrointestinal Progress Note ---
<DebraJuliet Jameson - Last Filed: 11/03/16 08:49> Assessment and Plan (1) Anemia Status: Acute Assessment and plan: 11/02-Hgb 10. EGD findings noted. Pt continues to refuse colon prep. Plan and addendum to follow by Dr Beltran 11/01-Hgb stable at 10.4 w/o overt bleeding. EGD postponed to tomorrow due to hypokalemia. Plan and addendum to follow by DR Beltran. 10/31-reports of abdominal pain by family on admission, patient denies any history of pain. Has history of dementia with CVA in past. Found on admission to be anemic. Refused stool for occult blood sample. To be transfused 2 units of packed red blood cells today. No known history of prior endoscopy. Continue to monitor H&H. Plan an addendum to follow by Dr. Beltran. Gastroenterology - PN: Subj Interval history: CC: Abdominal pain, anemia Pt is seen, awake and alert. States she is feeling better today, denies any abdominal pain. She is tolerating her diet well. EGD findings noted on yesterday. Pt continues to refuse colon prep at this time. Abdomen is soft, nontender. Hemoglobin 10. ROS: Denies SOB or chest pain Exam (Progress Note) - Constitutional Vitals: Period Temp Pulse Resp BP Sys/Wilson Pulse Ox Last 24 Hr 98.1 F-98.9 F 68-84 16-18 93-136/45-049 90-99 General appearance: normal weight, no acute distress - Head Head exam: Present: normal inspection, normocephalic - Eye Eye exam: Present: other (lids and conjunctiva unremarakble). Absent: scleral icterus - ENT ENT exam: Present: normal exam, normal oropharynx - Neck Neck exam: Present: normal inspection - Respiratory Respiratory exam: Present: clear to auscultation bilaterally. Absent: rales, rhonchi, wheezes - Cardiovascular Cardiovascular exam: Present: regular rate and rhythm. Absent: diastolic murmur , JVD, systolic murmur - GI/Abdominal GI/Abdominal exam: Present: normal bowel sounds, soft. Absent: ascites, distended, mass, organomegaly, tenderness - Extremities Exam Extremities exam: Present: normal inspection, full ROM - Back Exam Back exam: Present: normal inspection - Neurological Exam Neurological exam: Present: alert, altered - Psychiatric Psychiatric exam: Present: normal affect, normal mood, agitated - Skin Skin exam: Present: normal color, warm, dry Results - Labs CBC & BMP: 11/03/16 07:39 11/02/16 00:41 Lab Results: I have reviewed the past 24 hour labs Specialty Discharge - Follow Up or Referrals Follow up with: Lewis Paul Dr. [Other] - 2 Weeks Chris Mittal MD [Physician] - 2 Weeks <Pj Beltran - Last Filed: 11/03/16 16:54> Exam (Progress Note) - Constitutional Vitals: Period Temp Pulse Resp BP Sys/Wilson Pulse Ox Last 24 Hr 98.1 F-98.9 F 77-84 18-18 114-138/56-65 90-97 Results - Labs CBC & BMP: 11/03/16 07:39 11/02/16 00:41
[2016-11-03 08:52] LABS: Hypochromasia 1+; Platelet Estimate Adequate; Target Cells Few
[2016-11-03] MEDS: PANTOPRAZOLE 40 MG VIAL IV SCH (09:29)
--- NOTE | 2016-11-03 10:19 | Discharge Summary ---
Hospital Course - Hospital Course Hospital Course: 76-year-old -[place] female with history of stroke and diabetes presents with complaints of abdominal pain and fatigue. Patient has very advanced dementia and is not a reliable historian. Her daughter however she lives with and who is been caring for her well reports that she has been generalized weakness. Her hemoglobin on admission was 7.6 and has dropped down to 6.2. Patient received 2 units of packed red blood cells and her hemoglobin is stabilized at 10.0. GI was consulted Dr. Beltran did not EGD on October 23, 2016 which showed erosive esophagitis. A colonoscopy was also planned however patient was not cooperative and could not be done. Per patient's advanced dementia I have recommended putting her on Seroquel at night. Patient also was noted to have an abnormal chest x-ray. Chest CT showed right upper lobe mass with satellite nodules in the right upper lobe and right lower lobe and invasion of the right upper mediastinum, mediastinal lymph nodes, chest wall, adrenal glands. Dr. Burdick from oncology was consulted and does not feel she is a candidate for radiation or chemotherapy. The biopsy was canceled and patient will be discharged home with hospice today. She does not seem to require blood pressure medicines her blood sugar medicines at this time so they have been discontinued. Follow up with Dr. Lewis Paul her primary doctor in 1- 2 weeks. I also recommended that she see Dr. Mittal from psychiatry to help her with her mother's dementia behavior. - Time spent with patient Time with patient DS: Greater than 30 minutes (45 min) Diagnosis - Discharge Diagnosis (1) Acute blood loss anemia Status: Acute (2) Acute renal failure Status: Acute (3) Generalized weakness Status: Acute (4) Mass of upper lobe of right lung Status: Acute (5) Dementia Status: Chronic (6) Diabetes Status: Acute (7) Hypercalcemia Status: Acute (8) Hypokalemia Status: Acute (9) UTI (urinary tract infection) Status: Acute Discharge Plan - Discharge Data Disposition: Hospice - Home Condition at Discharge: Stable Discharge Diet: diabetic diet Activity: resume usual activities as tolerated - Discharge Medications New QUEtiapine [SEROquel] 50 mg PO BEDTIME #30 tablet Amoxicillin/Clav Tab [Augmentin Tab] 500 mg PO BID #10 tablet Pantoprazole Tab [Protonix Tab] 40 mg PO DAILY #30 tablet Discontinued amLODIPine [Norvasc] 10 mg PO DAILY metFORMIN [Glucophage] 500 mg PO DAILY Aspirin [Ecotrin] 81 mg PO DAILY - Follow Up or Referral Follow Up: Lewis Paul Dr. [Other] - 2 Weeks Chris Mittal MD [Physician] - 2 Weeks - Forms/Instructions Exam - Constitutional Vitals: Period Temp Pulse Resp BP Sys/Wilson Pulse Ox Last 24 Hr 98.1 F-98.9 F 68-84 16-18 93-136/45-049 90-99 General appearance: normal weight, no acute distress - Respiratory Respiratory exam: Present: clear to auscultation bilaterally. Absent: rhonchi, wheezes - Cardiovascular Cardiovascular exam: Present: regular rate and rhythm. Absent: systolic murmur - GI/Abdominal GI/Abdominal exam: Present: normal bowel sounds, soft - Neurological Exam Neurological exam: Present: altered Discharge Results Procedures and tests throughout hospitalization: Pending Orders 11/02/16 02:00 Occult Blood, Stool Routine Labs on day of discharge: Labs from last 24 hours 11/03/16 11/02/16 11/02/16 07:39 19:41 14:51 WBC 13.0 H RBC 4.58 Hgb 10.0 L Hct 32.9 L MCV 71.8 L MCH 22 L MCHC 30.4 L RDW 27.0 H Plt Count 441 H MPV 9.9 Neut % (Auto) 78.4 H Lymph % (Auto) 10.9 L Rapides % (Auto) 8.9 Eos % (Auto) 0.6 Baso % (Auto) 0.3 Neut # (Auto) 10.2 H Lymph # (Auto) 1.4 Rapides # (Auto) 1.2 H Eos # (Auto) 0.1 Baso # (Auto) 0.0 Immature Gran % 0.9 Nucleated RBC % 0.0 Immature Gran # 0.12 Nucleated RBCs # 0.00 Platelet Estimate Adequate Hypochromasia 1+ Target Cells Few Morphology Comment POC Glucose 119 H 119 H DS: Provider Date of admission: 10/31/16 00:46 Primary care physician: . No PCP Attending physician on admission: Sharee Harman MD Consults: 10/31/16 03:18 Consult to Dietitian [CONS] Routine Reason for Dietitian: Diet Recommendations 10/31/16 09:14 Consult to Physician [CONS] Routine Comment: acute gi bleed Consulting Provider: Pj Beltran When should Consulting Provider be notified: Now Person Notified: sanford Date Notified: 10/31/16 Time Notified: 09:52 Consult Notification Comment: 11/01/16 10:35 Consult to Case Mgmt/Social Srvs [CONS] Routine Reason for Case Mgmt/Social Srvs: Hospice Referral Consult Comment: lung ca, refer to quality Discharging clinician: Sharee Harman MD
[2016-11-03 12:21] VITALS: BP 114/56
== END 2016-11-03 15:09 | disposition hospice, home (50) | DRG 181 ==
LOC: N.ED 20:48 → N.EDINP 10-31 00:46 → N.5E 10-31 02:50
PROVIDERS: ADMIT Internal Medicine; ATTEND Internal Medicine